=== PATIENT | male | born 1985 | race Caucasian/White ===

== ENCOUNTER 2018-11-14 07:16 | Emergency (ER) | payer OTHER ==
--- NOTE | 2018-11-14 07:44 | ED ---
Respiratory - HPI Summary HPI Summary: Mr. Kwong presented complaining of congestion and upper respiratory symptoms for several days to a week. In the last couple days he's had particular stuffy feeling and pain below his left eye and in the left side of his nose. He denies any fever, sore throat, ear pain or headache. - History of Current Complaint Chief Complaint: UCGeneralIllness Stated Complaint: SINUS CONCERN Time Seen by Provider: 11/14/18 07:38 Hx Obtained From: Patient Onset/Duration: Gradual Onset, Lasting Days Timing: Constant Initial Severity: Moderate Current Severity: Mild - acetaminophen is effective Pain Intensity: 3 Sputum Amount: None Aggravating Factor(s): Nothing Alleviating Factor(s): Nothing, OTC Medications - taking sudafed Associated Signs and Symptoms: Sinus Infection, Nasal Congestion - Allergy/Home Medications Allergies/Adverse Reactions: Allergies Allergy/AdvReac Type Severity Reaction Status Date / Time No Known Allergies Allergy Verified 11/14/18 07:31 Home Medications: Home Medications Acetaminophen [Tylenol Extra Strength] 1,000 mg PO Q6HR PRN 11/14/18 [History Confirmed 11/14/18] Pseudoephedrine TAB* [Sudafed TAB*] 60 mg PO BID PRN 11/14/18 [History Confirmed 11/14/18] PMH/Surg Hx/FS Hx/Imm Hx Previously Healthy: Yes - Surgical History Surgery Procedure, Year, and Place: tonsillectomy Infectious Disease History: No Infectious Disease History: Denies: Traveled Outside the [place] in Last 30 Days - Social History Alcohol Use: Occasionally Substance Use Type: Reports: None Smoking Status (MU): Never Smoked Tobacco Review of Systems Constitutional: Negative Positive: Nasal Discharge. Negative: Epistaxis, Sore Throat, Ear Ache Respiratory: Negative All Other Systems Reviewed And Are Negative: Yes Physical Exam - Summary Physical Exam Summary: He is nontoxic in appearance with stable vital signs. Triage Information Reviewed: Yes Vital Signs On Initial Exam: Initial Vitals Temp Pulse Resp BP Pulse Ox 97.8 F 100 15 116/73 98 11/14/18 07:31 11/14/18 07:31 11/14/18 07:31 11/14/18 07:31 11/14/18 07:31 Vital Signs Reviewed: Yes Appearance: Positive: Well-Appearing Skin: Positive: Warm, Skin Color Reflects Adequate Perfusion, Dry Head/Face: Positive: Normal Head/Face Inspection ENT: Positive: Nasal congestion, Sinus tenderness - Good transillumination Neck: Positive: Supple, Nontender, No Lymphadenopathy Respiratory/Lung Sounds: Positive: Clear to Auscultation Cardiovascular: Positive: Normal Neurological: Positive: Normal Diagnostics - Vital Signs Vital Signs Temp Pulse Resp BP Pulse Ox 11/14/18 07:31 97.8 F 100 15 116/73 98 - Laboratory Lab Statement: Any lab studies that have been ordered have been reviewed, and results considered in the medical decision making process. Disposition - Course Course Of Treatment: Mr. Kwong has a URI. And likely a viral sinus infection. I recommended that we keep him decongested and treat symptomatically. He is particularly concerned as he has a new baby on the way. - Diagnoses Provider Diagnoses: URI (upper respiratory infection), Viral sinusitis Discharge - Sign-Out/Discharge Documenting (check all that apply): Patient Departure All imaging exams completed and their final reports reviewed: No Studies - Discharge Plan Condition: Stable Disposition: HOME Prescriptions: Oxymetazoline 0.05% NASAL SPR* [Afrin 0.05% NASAL SPRAY*] 1 spray NASAL Q12H #1 btl Patient Education Materials: Upper Respiratory Infection (ED) Referrals: Elizabeth Buchanan MD [Primary Care Provider] - - Billing Disposition and Condition Condition: STABLE Disposition: Home
[2018-11-14 08:15] VITALS: BP 116/73
== END 2018-11-14 07:58 | disposition home or self-care (01) ==
LOC: UCCORT 07:16
DX: J32.9 Chronic sinusitis, unspecified (principal); B97.89 Other viral agents as the cause of diseases classified elsewhere
CPT/HCPCS: 99202; G0463